=== PATIENT | female | born 1980 | race Caucasian/White ===

== ENCOUNTER 2017-07-02 15:11 | Emergency (ER) | payer MEDICAID ==
[2017-07-02] MEDS ORDERED: Sodium Chloride 0.9% 1,000 ML IV ONE (17:23)
[2017-07-02 17:37] LABS: % BASOPHILS 0.2 % (0.0-2.0); % EOSINOPHILS 0.1 % (0.0-5.0); % LYMPHOCYTES 11.4 % (20.0-50.0); % NEUTROPHILS 80.3 % (40.0-80.0); HEMATOCRIT 41.7 % (41.0-60); HEMOGLOBIN 14.2 gm/dL (12-16); LYMPHOCYTE ABSOLUTE 1.7 Th/cmm (1.5-3.0); MEAN CELL VOLUME 87.4 fl (81-100); MEAN CORPUSCULAR HEMOGLOBIN 29.7 pg (27.0-31.0); MEAN PLATELET VOLUME 7.7 fl; MONOCYTE ABSOLUTE 1.2 Th/cmm (0.3-1.0); NEUTROPHILE ABSOLUTE 12.2 Th/cmm (1.8-8.0); PLATELET COUNT 261 Th/cmm (150-400); RED BLOOD COUNT 4.77 Mil/cmm (3.80-5.10); RED CELL DISTRIBUTION WIDTH 12.3 % (11.5-20.0)
[2017-07-02 17:39] LABS: WHITE BLOOD COUNT 15.1 Th/cmm (4.8-10.8)
[2017-07-02 17:57] LABS: ALB/GLOB RATIO 1.2 (1.0-1.8); ALBUMIN 4.4 gm/dL (3.7-5.3); ALKALINE PHOSPHATASE 79 U/L (34-104); AMYLASE SERUM 18 U/L (29-103); ANION GAP 11.8 (7.0-16.0); BILIRUBIN,TOTAL 0.5 mg/dL (0.3-1.0); BUN - UREA NITROGEN 8 mg/dL (7-25); CARBON DIOXIDE 23.7 mEq/L (21.0-31.0); CHLORIDE 102 mEq/L (98-107); CREATININE - SERUM 0.6 mg/dL (0.6-1.2); GFR AFRICAN-AMERICAN > 60.0 ml/min (>90); GFR NON AFRICAN-AMERICAN > 60.0 ml/min; GLUCOSE 121 mg/dL (70-105); LIPASE 15 U/L (11-82); POTASSIUM SERUM 3.5 mEq/L (3.5-5.1); SGOT 26 U/L (13-39); SGPT/ALT 28 U/L (7-52); SODIUM SERUM 134 mEq/L (136-145); TOTAL PROTEIN,SERUM 8.1 gm/dL (6.0-8.3)
[2017-07-02] MEDS ORDERED: Morphine Sulfate 4 mg/mL 1mL Syr ONE (18:08)
--- NOTE | 2017-07-02 19:38 | ED Physician Chart ---
ED Chief Complaint/HPI - Patient Information Date Seen:: 07/02/17 Time Seen:: 09:10 Chief Complaint:: RIGHT EARACHE X 3 DAYS History of Present Illness:: RIGHT EARACHE X 3 DAYS. THE PAIN WAS ACCOMPANIED BY FEVER, CHILLS, NAUUSEA AND VOMITING. THE SEVERITY OF THE PAIN WAS RATED AT AN 8/10. THERE WAS NO RELIEF FROM OTC MEDICATIONS. THE PATIENT DEVELOPED A SORE THROAT AND THEN THE COURSE CONTINUED TO BE PAIN INT THE RIGHT UPPER QUADRANT OF THE ABDOMEN. THIS WAS ACCOMPANIED BY TENDERNESS AND THE RUQ. NO HEPATOMEGALY WAS APPRECIATED. Allergies:: Allergies Allergy/AdvReac Type Severity Reaction Status Date / Time No Known Allergies Allergy Verified 07/02/17 15:22 Vitals:: Vital Signs - 8 hr 07/02/17 15:23 Temp 99.2 F HR 110 RR 22 BP 121/84 O2 Sat % 99 ED Review of Systems - Review of Systems General/Constitutional: No fever, Chills Skin: No skin lesions, No rash Head: No headache Eyes: No loss of vision, No diplopia ENT: Earache, Sore throat, No tinnitus Neck: No neck pain, No mass noted Cardio Vascular: No chest pain, No PND Family Medical History - Family Member Mother History Unknown: Yes ED Labs/Radiology/EKG Results - Lab Results Results: Laboratory Tests 07/02/17 07/02/17 07/02/17 17:30 17:30 17:30 WBC 15.1 H RBC 4.77 Hgb 14.2 Hct 41.7 MCV 87.4 MCH 29.7 MCHC Differential 34.0 RDW 12.3 Plt Count 261 MPV 7.7 Neutrophils % 80.3 H Lymphocytes % 11.4 L Monocytes % 8.0 Eosinophils % 0.1 Basophils % 0.2 Sodium 134 L Potassium 3.5 Chloride 102 Carbon Dioxide 23.7 Anion Gap 11.8 BUN 8 Creatinine 0.6 Est GFR ( Amer) > 60.0 Est GFR (Non-Af Amer) > 60.0 BUN/Creatinine Ratio 13.3 Glucose 121 H Whole Bld Lactic Acid 1.07 Calcium 10.0 Total Bilirubin 0.5 AST 26 ALT 28 Alkaline Phosphatase 79 Total Protein 8.1 Albumin 4.4 Globulin 3.7 Albumin/Globulin Ratio 1.2 Amylase 18 L Lipase 15 Urine Test POC Ur Test 07/02/17 07/02/17 18:15 18:19 WBC RBC Hgb Hct MCV MCH MCHC Differential RDW Plt Count MPV Neutrophils % Lymphocytes % Monocytes % Eosinophils % Basophils % Sodium Potassium Chloride Carbon Dioxide Anion Gap BUN Creatinine Est GFR ( Amer) Est GFR (Non-Af Amer) BUN/Creatinine Ratio Glucose Whole Bld Lactic Acid Calcium Total Bilirubin AST ALT Alkaline Phosphatase Total Protein Albumin Globulin Albumin/Globulin Ratio Amylase Lipase Urine Test NEGATIVE POC Ur Test Negative ED Assessment - Assessment General Assessment: CASE SUMMARY: PATIENT PRESENTED WITH A THREE DAY HISTORY OF SORE THROAT WHICH HAS PROGRESSIVELY BECOME WORSE. THE SORE THROAT WAS ACCOMPANIED BY FEVER, CHILLS, NAUSEA AND VOMITING. WHITE COUNT WAS IN THE 15,000 RANGE. THE PAIN MIGRATED OVER THE THREE DAYS FROM THE RIGHT EAR INTO THE THROAT. IT THEN SUBSEQUENTLY MIGRATED INTO THE RIGHT UPPER QUADRANT. ULTRASOUND OF THE RIGHT UPPER QUADRANT WAS NEGATIVE FOR CHOLELITHIASIS OR CHOLECYSTITIS. THE CT SCAN WAS ORDERED AND THE PATIENT WAS PASSED ON TO [facility] AT THE CHANGE OF SHIFT FOR REVIEW OF HE ABDOMINAL CT SKIN AND DISPOSITION. ED Septic Shock - . Is Septic Shock (SBP<90, OR Lactate>4 mmol\L) present?: No - <6hrs of presentation: Vital Signs: Vital Signs - 8 hr 07/02/17 15:23 Temp 99.2 F HR 110 RR 22 BP 121/84 O2 Sat % 99 ED Discharge Plan - Patient Disposition Admit/Discharge/Transfer: PT DISCHARGED HOME Condition at Disposition: Stable Instructions: Viral and Bacterial Pharyngitis
[2017-07-02] MEDS ORDERED: IOHEXOL 300mgI/mL 100 ML VIAL ONE (19:43)
[2017-07-02] MEDS ORDERED: Acetaminophen 500 MG TAB PO ONE (21:49)
[2017-07-02] MEDS ORDERED: Levofloxacin 750mg/150mL 750 MG/150 ML BAG IV ONE ×2 (21:50→23:00)
[2017-07-02] MEDS ORDERED: cefTRIAXone 2 GM in Sodium Chloride 0.9% 100 ML IV ONE (21:52)
[2017-07-02] MEDS ORDERED: Potassium Chloride 20 mEq ER Tab PO ONE (21:59)
[2017-07-02] MEDS ORDERED: Acetaminophen 500 MG TAB ONE (22:11)
--- NOTE | 2017-07-02 22:45 | ER Physician Documentation ---
DATE OF SERVICE: 07/02/2017 The patient was seen by Dr. Brown who left at the change of shift, maybe half an hour or more after that. It was very busy. LABORATORY DATA: The patient's lab workup shows white count to be 15.1, hemoglobin 14.2, hematocrit 41.7, platelet count of 261, neutrophils 80.3, lymphocytes 11.4. Electrolytes show sodium 134, potassium 3.5, BUN is 8 and creatinine 0.6, glucose is 121. Lactic acid level is 1.07, AST is 26, ALT 28, albumin is 4.1. Urine test is negative. POC test is found to be negative. The patient has a sore throat. She has a left-sided tonsillitis, pharyngitis, upper respiratory tract infection and the patient needs antibiotics, so, the patient is given Levaquin. The patient is given vancomycin. The patient is given Levaquin and ceftriaxone and then the patient will be sent home and will take the medication for at least 5 days or so. The medication are already dictated. The abnormal is white count of 15.1. Potassium is 3.5. I gave the patient medications also potassium for the patient's potassium level being low. JOB# [id number]
--- NOTE | 2017-07-02 22:47 | ER Physician Documentation ---
DATE OF SERVICE: 07/02/[address] of the abdomen and pelvis which was ordered by Dr. Brown and we just got about an hour ago. Report of the CT of the abdomen and pelvis with contrast showing bilateral ovarian follicular changes. No other acute abnormalities were seen. We will give a copy of this to the patient. We will give some potassium because the patient's potassium is low. We will give some liquid potassium to the patient. JOB# [id number]
--- NOTE | 2017-07-03 08:33 | Diagnostic Imaging Report ---
CHEST X-RAY: AP view INDICATION: Right upper quadrant pain, increases respiration COMPARISON: None FINDINGS: There is no focal consolidation or pleural effusions The heart is normal in size. The osseous structures demonstrate no acute abnormalities. IMPRESSION: No acute cardiopulmonary disease.
--- NOTE | 2017-07-03 08:37 | Diagnostic Imaging Report ---
Ultrasound abdomen HISTORY: Right upper quadrant pain COMPARISON: CT abdomen and pelvis the same day Technique: Sonography of the abdomen was performed in multiple planes. FINDINGS: Exam is limited due to bowel gas. The liver demonstrates normal echogenicity with no evidence of focal lesions. The liver measures 16.8 cm. No evidence of gallstones or gallbladder wall thickening. The common bile duct measures 3 mm. Evaluation of the pancreas is limited due to bowel gas. The right kidney measures 9.9 x 4.5 cm. No evidence of focal lesions or hydronephrosis. The left kidney measures 9.4 x 5.5 cm. No evidence of focal lesions or hydronephrosis. The spleen measures 9.3 cm. The visualized portions of the abdominal aorta within normal limits in size. IMPRESSION: No evidence of gallstones. Liver at the upper limits of normal in size. No evidence of hydronephrosis.
--- NOTE | 2017-07-03 08:44 | Diagnostic Imaging Report ---
CT abdomen and pelvis with intravenous contrast Indication: Severe right upper quadrant pain Comparison: None, Technique: Axial images were obtained from the lung bases to the bilateral proximal femurs with IV contrast and oral. Coronal reconstructions were made. total DLP: 414, CTDI8.3 FINDINGS: There is a 4 mm nodular density of the left lung base with slight irregularities. This is best seen on image 5, series 18). Hypoventilatory atelectatic changes of the lungs are noted. No evidence of focal hepatic, splenic, pancreatic, or adrenal lesions. No evidence of hydronephrosis or focal renal lesions. There is a small fat-containing umbilical hernia. Fluid and gas-filled small bowel are noted. No evidence of bowel obstruction. The appendix is not well-visualized. There is minimal diverticulosis. No diverticulitis. Few mildly prominent right lower quadrant lymph nodes are noted. No evidence of free fluid or free air. Small bilateral adnexal cystic changes are noted. The osseous structures demonstrate no acute abnormalities. IMPRESSION: Fluid-filled loops of small bowel which is nonspecific, however, underlying enteritis cannot be excluded. Please correlate clinically. No radiopaque gallstones identified. Few mildly prominent right lower quadrant lymph nodes, nonspecific, may be due to infectious inflammatory process. Consider follow-up if indicated. Minimal diverticulosis without diverticulitis. Small bilateral adnexal cystic changes. Findings are probably physiologic. Consider ultrasound if needed. 4 mm slightly irregular nodular density of the left lung base. Findings are nonspecific and may be due to atelectasis or scarring or due to prior infectious or inflammatory process. Neoplastic process cannot be completely excluded. Correlation with old exams would be helpful comparison. Alternatively follow-up CT examination in 4-6 months is recommended for further assessment/monitoring.
== END 2017-07-03 01:20 | disposition home or self-care (01) ==
LOC: ER 15:11
DX: H92.01 Otalgia, right ear (principal)
CPT/HCPCS: 99285; 96365; 96368; 96375; 71045; 76700; 74177; 36415; 83605; 85025; 82150; 81025 ×2; 83690; 80053; 87040; J1956; J2405; J0696; J3370; J7030; Q9967; Z7610